=== PATIENT | female | born 1975 | race Caucasian/White ===

== ENCOUNTER 2019-11-24 09:34 | Outpatient (CLI) | payer BC ==
--- NOTE | 2019-11-24 12:30 | MRI ---
MRI LEFT ANKLE WITHOUT CONTRAST: HISTORY: Pain. COMPARISON: None. FINDINGS: The TFL and PITFL are intact. ATFL is intact as well as the CFL. Superficial and deep deltoid ligam ents are intact. TENDONS: The Achilles tendon is intact. No significant tendinosis. No tearing. The extensor tendons are intact. Flexor tendons demonstrate moderate tenosynovitis of the posterior tibial tendon just below the level of the medial malleolus to its navicular insertion. There some mi ld tenosynovial fluid within the peroneal tendon sheath distal to the lateral malleolus. No longitud inal split tear is appreciated. No subluxation. The fiberosseous bridge is intact. MUSCLES: Muscle signal and bulk is normal. CARTILAGE: The articular cartilage appears to be maintained. No osteochondral defect of the tibiotalar joint no r the subtalar joints. The plantar fascia is intact without tear or fibromatosis. IMPRESSION: 1. Moderate posterior tibial tenosynovitis without significant tear. 2. Mild peroneal sheath tenosynovitis below the level of the lateral malleolus for a length of 2 cm. No longitudinal split tear, subluxation, nor evidence of peroneal retinaculum injury. POS: OFF
== END 2019-11-24 09:35 | disposition home or self-care (01) ==
LOC: SCSMRI 09:34
PROVIDERS: ATTEND Podiatrist Foot & Ankle Surgery
DX: M76.72 Peroneal tendinitis, left leg (principal); M65.9 Synovitis and tenosynovitis, unspecified

== ENCOUNTER 2022-02-06 07:41 | Outpatient (CLI) | payer BC ==
[2022-02-06] MEDS ORDERED: Iopamidol 370 76% 100 ML VIAL ONE (09:56)
== END 2022-02-06 07:42 | disposition home or self-care (01) ==
LOC: CT 07:41
PROVIDERS: ATTEND Family Medicine
DX: D18.09 Hemangioma of other sites (principal); M54.14 Radiculopathy, thoracic region
CPT/HCPCS: 72129; 78306; A9503; Q9967

== ENCOUNTER 2022-03-09 10:31 | Outpatient (CLI) | payer BC | END 2022-03-09 10:32 | disposition home or self-care (01) | LOC: BICULT 10:31 | PROVIDERS: ATTEND Family Medicine | DX: R22.2 Localized swelling, mass and lump, trunk (principal) | CPT/HCPCS: 76999 ==

== ENCOUNTER 2022-03-26 07:41 | Outpatient (CLI) | payer BC, OTHER | END 2022-03-26 07:42 | disposition home or self-care (01) | LOC: CT 07:41 | PROVIDERS: ATTEND Family Medicine | DX: R22.2 Localized swelling, mass and lump, trunk (principal) | CPT/HCPCS: 74170 ==

== ENCOUNTER 2024-08-07 09:03 | Outpatient (CLI) | payer BC | END 2024-08-07 09:04 | disposition home or self-care (01) | LOC: SCSMRI 09:03 | PROVIDERS: ATTEND Orthopaedic Surgery | DX: M79.89 Other specified soft tissue disorders (principal) | CPT/HCPCS: 36415; 82565 ==

== ENCOUNTER 2024-10-03 13:59 | Outpatient (CLI) | payer BC ==
[2024-10-03 15:10] LABS: #Basophils 0.05 10x3/uL (0.0-0.2); %Basophils 0.6 % (0.0-1.0); %Eosinophils 2.8 % (0.0-10.0); %Lymphocytes 35.7 % (21.0-51.0); %Monocytes 8.7 % (0.0-10.0); %Neutrophils 51.9 % (42.0-75.0); Hematocrit 40.3 % (36.0-47.0); Hemoglobin 13.6 g/dL (12.0-16.0); Mean Corpuscular HGB CONC 33.7 g/dL (32.0-36.0); Mean Corpuscular Hemoglobin 31.1 pg (27.0-31.0); Mean Corpuscular Volume 92.2 fL (78.0-98.0); Mean Platelet Volume 8.9 fL (7.4-10.4); Platelet Count 303 10x3/uL (130-400); RBC Distribution Width 12.5 % (11.5-14.5); Red Blood Cell (RBC) Count 4.37 mill/uL (4.20-5.40)
[2024-10-03 15:29] LABS: Anion Gap 12 mmol/L (10-20); BUN (Urea Nitrogen) 16 mg/dL (7.0-18.7); Calc. Creatinine Clearance 0 mL/min (70-130); Calcium 9.1 mg/dL (7.8-10.44); Carbon Dioxide 23 mmol/L (22-29); Chloride 105 mmol/L (98-107); Estimated GFR 94; Glucose 93 mg/dL (70-105); Potassium 3.9 mmol/L (3.5-5.1); Sodium 136 mmol/L (136-145)
== END 2024-10-03 14:00 | disposition home or self-care (01) ==
LOC: LABBT 13:59
PROVIDERS: ATTEND Orthopaedic Surgery
DX: Z01.818 Encounter for other preprocedural examination (principal); G56.02 Carpal tunnel syndrome, left upper limb; M79.89 Other specified soft tissue disorders
CPT/HCPCS: 80048; 85025; 93005; 93010

== ENCOUNTER 2024-10-05 05:42 | Day surgery (SDC) | payer BC ==
[2024-10-03 14:16] VITALS: BMI 34.7
[2024-10-05] MEDS ORDERED: Lidocaine 1% (PF) 30 ML VIAL ONE (06:52)
[2024-10-05] MEDS ORDERED: CEFAZOLIN 2 GM VIAL ONE (06:59)
[2024-10-05] MEDS ORDERED: Ketorolac Tromethamine 30 MG (1 mL) VIAL ONE (07:03)
[2024-10-05] MEDS ORDERED: Lidocaine 1% PF 5 ML VIAL ONE (07:03)
[2024-10-05] MEDS ORDERED: Ondansetron PF 4 MG/2 ML Vial ONE (07:03)
[2024-10-05] MEDS ORDERED: fentaNYL 50 mcg/mL 1 mL Vial ONE ×4 (07:03→08:35)
[2024-10-05] MEDS ORDERED: PROPOFOL 20 ML ONE (07:03)
[2024-10-05] MEDS ORDERED: Sodium Chloride 0.9% 250 ML 250 ML ONE (07:10)
[2024-10-05] MEDS ORDERED: Bupivacaine PF 0.5% 30 ML VIAL ONE (07:24)
[2024-10-05] MEDS ORDERED: ePHEDrine Sulfate 50 MG/10 ML VIAL ONE (07:31)
[2024-10-05] MEDS ORDERED: HYDROcodone/Acetaminophen 5/325 mg Tablet ONE (09:22)
== END 2024-10-05 10:02 | disposition home or self-care (01) ==
LOC: SDC 05:42
PROVIDERS: ATTEND Orthopaedic Surgery
PROC: 01N54ZZ Release Median Nerve, Percutaneous Endoscopic Approach (ICD-10-PCS; principal; 2024-10-05)
PROC: 0JBF3ZZ Excision of Left Upper Arm Subcutaneous Tissue and Fascia, Percutaneous Approach (ICD-10-PCS; principal; 2024-10-05)
DX: G56.03 Carpal tunnel syndrome, bilateral upper limbs (principal); M79.89 Other specified soft tissue disorders; J30.2 Other seasonal allergic rhinitis; M47.22 Other spondylosis with radiculopathy, cervical region; M77.11 Lateral epicondylitis, right elbow; M77.12 Lateral epicondylitis, left elbow; F32.A Depression, unspecified; I10 Essential (primary) hypertension; Z86.718 Personal history of other venous thrombosis and embolism; Z79.01 Long term (current) use of anticoagulants; Z79.899 Other long term (current) drug therapy
CPT/HCPCS: 88304; A6223; J0665; J1885; J2405; J2704; J3010; J7050

== ENCOUNTER 2025-10-17 13:33 | Outpatient (CLI) | payer BC ==
[2025-10-17 14:39] LABS: #Basophils 0.03 10x3/uL (0.0-0.2); #Eosinophils 0.14 10x3/uL (0.0-0.7); #Monocytes 0.43 10x3/uL (0.11-0.59); #Neutrophils 3.49 10x3/uL (1.40-6.50); %Basophils 0.5 % (0.0-1.0); %Eosinophils 2.2 % (0.0-10.0); %Lymphocytes 34.5 % (21.0-51.0); %Monocytes 6.8 % (0.0-10.0); %Neutrophils 55.5 % (42.0-75.0); Hematocrit 41.9 % (36.0-47.0); Hemoglobin 13.2 g/dL (12.0-16.0); Mean Corpuscular Hemoglobin 29.6 pg (27.0-31.0); Mean Corpuscular Volume 93.9 fL (78.0-98.0); Platelet Count 301 10x3/uL (130-400); Red Blood Cell (RBC) Count 4.46 mill/uL (4.20-5.40); White Blood Cell (WBC) Count 6.29 10x3/uL (4.8-10.8)
[2025-10-17 14:51] LABS: Anion Gap 13 mmol/L (10-20); BUN (Urea Nitrogen) 15 mg/dL (9.8-20.1); Calc. Creatinine Clearance 0 mL/min (70-130); Calcium 9.0 mg/dL (7.8-10.44); Carbon Dioxide 24 mmol/L (22-29); Chloride 107 mmol/L (98-107); Glucose 81 mg/dL (70-105); Potassium 4.3 mmol/L (3.5-5.1); Sodium 140 mmol/L (136-145)
[2025-10-17 14:52] LABS: INR-International Normal Ratio 1.0; Prothrombin Time 13.5 sec (12.0-14.7)
[2025-10-17 15:23] LABS: PTT 21.2 sec (22.9-36.1)
== END 2025-10-17 13:34 | disposition home or self-care (01) ==
LOC: LABBT 13:33
PROVIDERS: ATTEND Orthopaedic Surgery
DX: Z01.818 Encounter for other preprocedural examination (principal); M77.12 Lateral epicondylitis, left elbow; G56.32 Lesion of radial nerve, left upper limb
CPT/HCPCS: 80048; 85025; 85610; 85730; 93005; 93010